=== PATIENT | female | born 1985 | race Caucasian/White ===

== ENCOUNTER 2020-06-02 08:54 | Inpatient (IN) ==
[2020-06-02] MEDS ORDERED: ONDANSETRON 4 MG/2 ML VIAL IV PRN ×2 (09:59→17:30)
[2020-06-02] MEDS ORDERED: OXYTOCIN/LR 20 UNIT/1,000 ML BAG IV PRN (09:59)
[2020-06-02] MEDS ORDERED: LACTATED RINGERS 1,000 ML IV SCH (10:00)
[2020-06-02 10:51] LABS: Basophils % 0.2 % (0.0-0.8); Eosinophils % 0.4 % (0.00-10.9); Hematocrit 30.8 VOL% (35.7-47.0); Hemoglobin 9.4 GM/DL (12.0-16.0); Immature Granulocytes % 0.7 %; Immature Granulocytes Absolute 0.04 #; Lymphocytes # 1.4 10*3/uL (1.4-4.0); Lymphocytes % 23.8 % (21.3-54.2); Mean Corpuscular HGB Conc 30.5 GM/DL (32-36); Mean Corpuscular Volume 76.6 FL (87-102); Monocytes % 5.5 % (1.7-12.7); Neutrophils % 69.4 % (38.7-73.9); Platelet Count 55 T/CUMM (130-400); Red Blood Count 4.02 MC/CUMM (3.8-5.5); Red Cell Distribution Width 14.6 % (9.3-17.3); White Blood Count 5.7 T/CUMM (4-12)
[2020-06-02 11:02] LABS: PT Patient Result 10.3 SECS (9.8-11.9); Partial Thromboplastin Time 31.1 SECS (23.9-33.8)
[2020-06-02 11:24] LABS: Bilirubin,Urine Negative (Negative); Blood, Urine Negative (Negative); Glucose,Urine (UA) Negative (Negative); Ketones,Urine Negative (Negative); Nitrite,Urine Negative (Negative); Protein,Urine Negative; RBC,Urine <1 /HPF (0-4); Squamous Epithelial Cell,Urine Occasional /HPF (0-10); Urine Appearance CLEAR (Clear); Urine Color Straw (Yellow); Urine Specific Gravity 1.006 (1.001-1.035); Urine Urobilinogen < 2.0 EU/DL (0.2-1.0); WBC,Urine <1 /HPF (0-6)
[2020-06-02 12:08] LABS: Alanine Aminotransferase 37 U/L (13-56); Albumin 2.1 G/DL (3.4-5.0); Alkaline Phosphatase 273 U/L (45-117); Aspartate Amino Transferase 61 U/L (0-37); Bilirubin,Total < 0.39 MG/DL (0.2-1.0); Blood Urea Nitrogen 11 MG/DL (7-18); Calcium 8.2 MG/DL (8.5-10.1); Estimated Glom Filtration Rate 142 ML/MIN; Glucose 66 MG/DL (74-106); Osmolality,Calculated 275.4 MOS/KG (273-304); Uric Acid 4.3 MG/DL (2.6-6.0)
[2020-06-02] MEDS: LORazepam 2 MG/1 ML VIAL IV PRN ×4 (12:36→23:07)
[2020-06-02] MEDS: MEPERIDINE 50 MG/1 ML VIAL IV PRN ×4 (12:43→23:10)
[2020-06-02 14:30] LABS: Band Neutrophils 5 % (0-10); Lymphocytes 15 % (20-55); Microcytosis Slight; Nucleated Red Blood Cells 2 (0-5); Platelet Estimate Decreased; Polychromasia Slight; Segmented Neutrophils 76 % (50-85); Total Cells Counted 100
[2020-06-02] MEDS ORDERED: OXYTOCIN/LR 30 UNIT/1,000 ML BAG IV ONE (14:43)
[2020-06-02] MEDS ORDERED: miSOPROStoL 200 MCG TABLET ONE (14:44)
[2020-06-02] MEDS ORDERED: METHYLERGONOVINE 0.2 MG/1 ML AMP ONE (14:45)
[2020-06-02] MEDS ORDERED: CARBOPROST TROMETHAMINE 250 MCG/ML AMP IM ONE (14:45)
[2020-06-02] MEDS ORDERED: BENZOCAINE 20%/MENTHOL 0.5% SPRAY 56 GM CAN TOP PRN (17:30)
[2020-06-02] MEDS ORDERED: OXYTOCIN/LR 20 UNIT/1,000 ML BAG IV ONE (17:30)
[2020-06-02] MEDS ORDERED: HYDROCORTISONE 2.5% RECTAL CREAM 30 GM TUBE TOP PRN (17:30)
[2020-06-02] MEDS ORDERED: RHO(D) IMMUNE GLOBULIN 300 MCG SYRINGE IM ONE (17:30)
[2020-06-02] MEDS ORDERED: MEASLES/MUMPS/RUBELLA VACCINE 0.5 ML VIAL SUBCUT ONE (17:30)
[2020-06-02] MEDS ORDERED: BISACODYL 10 MG SUPP RECTAL PRN (17:30)
[2020-06-02] MEDS ORDERED: LANOLIN 50% CREAM 0.3 OZ TUBE TOP PRN (17:30)
[2020-06-02] MEDS ORDERED: DIPH/TET/ACEL PERT BOOSTER VACCINE 0.5 ML VIAL IM ONE (17:30)
[2020-06-02] MEDS ORDERED: IBUPROFEN 800 MG TABLET PO PRN (17:30)
[2020-06-02] MEDS ORDERED: WITCH HAZEL PADS 100/JAR TOP PRN (17:30)
[2020-06-02] MEDS ORDERED: oxyCODONE/ACETAMINOPHEN 5-325 MG TABLET PO PRN ×2 (17:30)
[2020-06-02] MEDS: ACETAMINOPHEN 325 MG TABLET PO PRN (17:55)
[2020-06-02] MEDS ORDERED: DOCUSATE SODIUM 100 MG CAPSULE PO SCH (21:00)
[2020-06-03] MEDS: ACETAMINOPHEN 325 MG TABLET PO PRN ×2 (03:29→10:13)
[2020-06-03] MEDS: LORazepam 2 MG/1 ML VIAL IV PRN ×2 (03:30→06:22)
[2020-06-03] MEDS: MEPERIDINE 50 MG/1 ML VIAL IV PRN (06:18)
[2020-06-03 06:20] LABS: Eosinophils % 0.7 % (0.00-10.9); Hematocrit 26.2 VOL% (35.7-47.0); Hemoglobin 8.2 GM/DL (12.0-16.0); Immature Granulocytes % 1.1 %; Immature Granulocytes Absolute 0.07 #; Lymphocytes # 1.3 10*3/uL (1.4-4.0); Lymphocytes % 21.4 % (21.3-54.2); Mean Corpuscular HGB Conc 31.3 GM/DL (32-36); Mean Corpuscular Volume 77.3 FL (87-102); Monocytes % 5.9 % (1.7-12.7); Neutrophils % 70.9 % (38.7-73.9); Red Blood Count 3.39 MC/CUMM (3.8-5.5); Red Cell Distribution Width 14.9 % (9.3-17.3); White Blood Count 6.1 T/CUMM (4-12)
[2020-06-03 06:26] LABS: Platelet Count 63 T/CUMM (130-400)
[2020-06-03 06:54] LABS: Eosinophils 1 % (0-10); Lymphocytes 16 % (20-55); Segmented Neutrophils 79 % (50-85); Total Cells Counted 100
[2020-06-03 06:55] LABS: Hypochromasia 1+; Microcytosis 1+; Platelet Estimate Decreased
[2020-06-03] MEDS ORDERED: PANTOPRAZOLE 40 MG TABLET PO SCH (10:30)
[2020-06-03] MEDS ORDERED: CETIRIZINE 10 MG TABLET PO SCH (10:30)
[2020-06-03] MEDS ORDERED: CHOLECALCIFEROL 1,000 UNIT TABLET PO SCH (10:30)
[2020-06-03] MEDS ORDERED: ZINC SULFATE 220 MG CAPSULE PO SCH (10:30)
[2020-06-03 12:48] VITALS: BP 108/51
[2020-06-03] MEDS ORDERED: APIXABAN 5 MG TABLET PO SCH ×2 (14:00→21:00)
[2020-06-03] MEDS ORDERED: ASCORBIC ACID 500 MG TABLET PO SCH (21:00)
== END 2020-06-03 16:30 | disposition home or self-care (01) | DRG 805 ==
LOC: N.LDOUT 08:54 → N.LD 08:56
PROVIDERS: ADMIT Obstetrics & Gynecology; ATTEND Obstetrics & Gynecology

== ENCOUNTER 2021-08-11 14:45 | Inpatient (IN) ==
[2021-08-11] MEDS ORDERED: ONDANSETRON 4 MG/2 ML VIAL IV PRN (15:29)
[2021-08-11] MEDS ORDERED: MEPERIDINE 50 MG/1 ML VIAL IV PRN (15:29)
[2021-08-11] MEDS: LACTATED RINGERS 1,000 ML IV SCH (15:30)
[2021-08-11] MEDS ORDERED: OXYTOCIN/LR 20 UNIT/1,000 ML BAG IV SCH (15:30)
[2021-08-11 15:51] LABS: Basophils % 0.2 % (0.0-0.8); Eosinophils % 0.7 % (0.00-10.9); Hematocrit 27.2 VOL% (35.7-47.0); Hemoglobin 8.1 GM/DL (12.0-16.0); Immature Granulocytes % 0.4 %; Immature Granulocytes Absolute 0.02 #; Lymphocytes # 0.8 10*3/uL (1.4-4.0); Lymphocytes % 14.4 % (21.3-54.2); Mean Corpuscular HGB Conc 29.8 GM/DL (32-36); Mean Corpuscular Volume 73.5 FL (87-102); Mean Platelet Volume 11.8 FL (9.6-12.0); Monocytes % 7.5 % (1.7-12.7); Neutrophils % 76.8 % (38.7-73.9); Platelet Count 127 T/CUMM (130-400); Red Cell Distribution Width 18.5 % (9.3-17.3); White Blood Count 5.3 T/CUMM (4-12)
[2021-08-11 16:06] LABS: Albumin 2.3 G/DL (3.4-5.0); Bilirubin,Total 1.8 MG/DL (0.20-1.00); Calcium 8.4 MG/DL (8.5-10.1); Osmolality,Calculated 273.5 MOS/KG (273-304); Potassium 3.4 MMOL/L (3.5-5.1); Total Protein 6.3 G/DL (6.4-8.2); Uric Acid 4.3 MG/DL (2.6-6.0)
[2021-08-11] MEDS: BETAMETH SODIUM PHOS/ACETATE 30 MG/5 ML VIAL IM SCH (16:09)
[2021-08-11 17:07] LABS: Bilirubin,Urine Negative (Negative); Blood, Urine Negative (Negative); Glucose,Urine (UA) Negative (Negative); Ketones,Urine Negative (Negative); Mucus,Urine Occasional /LPF (Occasional); Nitrite,Urine Negative (Negative); Protein,Urine 30 MG/DL; RBC,Urine 3 /HPF (0-4); Squamous Epithelial Cell,Urine Occasional /HPF (0-10); Urine Appearance CLEAR (Clear); Urine Color Yellow (Yellow); Urine Specific Gravity 1.016 (1.001-1.035); Urine Urobilinogen < 2.0 EU/DL (<2.0)
[2021-08-11] MEDS: ACETAMINOPHEN 500 MG TABLET PO PRN (19:38)
[2021-08-12] MEDS ORDERED: BETAMETH SODIUM PHOS/ACETATE 30 MG/5 ML VIAL IM SCH (00:05)
[2021-08-12] MEDS: LACTATED RINGERS 1,000 ML IV SCH ×2 (00:53→12:27)
[2021-08-12] MEDS: ACETAMINOPHEN 500 MG TABLET PO PRN ×2 (00:55→20:46)
[2021-08-12] MEDS ORDERED: CALCIUM CARBONATE CHEW 500 MG TABLET PO PRN (01:29)
[2021-08-12] MEDS: BETAMETH SODIUM PHOS/ACETATE 30 MG/5 ML VIAL IM SCH (06:16)
[2021-08-12] MEDS ORDERED: CLINDAMYCIN INJ 900 MG/50 ML PREMIX IV SCH (09:00)
[2021-08-12] MEDS: atenoloL 25 MG TABLET PO SCH (10:25)
[2021-08-12] MEDS ORDERED: miSOPROStoL 200 MCG TABLET ONE (14:22)
[2021-08-12] MEDS ORDERED: SODIUM CHLORIDE 0.9% 0 ML IV ONE (14:22)
[2021-08-12] MEDS ORDERED: TRANEXAMIC ACID 1,000 MG/10 ML VIAL ONE (14:22)
[2021-08-12] MEDS ORDERED: OXYTOCIN/LR 20 UNIT/1,000 ML BAG IV ONE (14:22)
[2021-08-12] MEDS ORDERED: METHYLERGONOVINE 0.2 MG/1 ML AMP ONE (14:23)
[2021-08-12] MEDS ORDERED: LIDOCAINE 1% 50 ML VIAL ONE (14:23)
[2021-08-12] MEDS ORDERED: CARBOPROST TROMETHAMINE 250 MCG/ML AMP IM ONE (14:23)
[2021-08-12] MEDS ORDERED: MEPERIDINE 50 MG/1 ML VIAL IV ONE (15:57)
[2021-08-12 16:34] LABS: Bacteria,Urine Occasional /HPF (Few); Bilirubin,Urine Negative (Negative); Blood, Urine Moderate mg/dL (Negative); Calcium Oxalate Crystals,Urine Occasional /HPF (Few); Glucose,Urine (UA) Negative (Negative); Ketones,Urine 80 mg/dL (Negative); Mucus,Urine Occasional /LPF (Occasional); Nitrite,Urine Negative (Negative); Protein,Urine Negative; RBC,Urine 91 /HPF (0-4); Urine Appearance CLEAR (Clear); Urine Color Straw (Yellow); Urine Specific Gravity 1.008 (1.001-1.035); Urine Urobilinogen < 2.0 EU/DL (<2.0)
[2021-08-12 16:39] LABS: Cord Venous Blood HCO3 21.3 MMOL/L; Cord Venous Blood PCO2 47.2 MMHG; Cord Venous Blood PO2 18.2
[2021-08-12] MEDS ORDERED: IBUPROFEN 600 MG TABLET PO PRN (20:43)
[2021-08-12] MEDS: FERROUS SULFATE 325 MG TABLET PO SCH (22:20)
[2021-08-12] MEDS: IBUPROFEN 800 MG TABLET PO PRN (22:21)
[2021-08-13] MEDS: ACETAMINOPHEN/CODEINE 300-30 MG TABLET PO PRN ×3 (03:50→21:32)
[2021-08-13 06:47] LABS: Eosinophils % 0.3 % (0.00-10.9); Hematocrit 26.8 VOL% (35.7-47.0); Hemoglobin 7.9 GM/DL (12.0-16.0); Immature Granulocytes % 0.6 %; Immature Granulocytes Absolute 0.04 #; Lymphocytes # 0.8 10*3/uL (1.4-4.0); Mean Corpuscular HGB Conc 29.5 GM/DL (32-36); Mean Corpuscular Volume 74.2 FL (87-102); Monocytes % 8.4 % (1.7-12.7); Neutrophils % 78.7 % (38.7-73.9); Platelet Count 128 T/CUMM (130-400); Red Blood Count 3.61 MC/CUMM (3.8-5.5); Red Cell Distribution Width 18.6 % (9.3-17.3); White Blood Count 6.9 T/CUMM (4-12)
[2021-08-13 07:08] LABS: Hypochromia 1+; Microcytosis 1+
[2021-08-13 07:09] LABS: Platelet Estimate Adequate; Tear Drop Cells Slight
[2021-08-13] MEDS: atenoloL 25 MG TABLET PO SCH ×2 (07:37→08:22)
[2021-08-13] MEDS: FERROUS SULFATE 325 MG TABLET PO SCH ×3 (07:39→21:31)
[2021-08-13] MEDS: PANTOPRAZOLE 40 MG TABLET PO SCH ×2 (07:39→08:22)
[2021-08-13] MEDS: POTASSIUM CHLORIDE 20 MEQ TABLET PO SCH ×2 (07:39→08:22)
[2021-08-13] MEDS ORDERED: SODIUM CHLORIDE 0.9% 1,000 ML IV PRN (09:31)
[2021-08-13] MEDS ORDERED: diphenhydrAMINE CAP 25 MG CAPSULE PO ONE (09:51)
[2021-08-13] MEDS ORDERED: ACETAMINOPHEN 325 MG TABLET PO ONE (09:52)
[2021-08-13] MEDS ORDERED: SERTRALINE 100 MG TABLET PO SCH (21:00)
[2021-08-13] MEDS ORDERED: BENZOCAINE 20%/MENTHOL 0.5% SPRAY 56 GM CAN TOP PRN (21:03)
[2021-08-13] MEDS ORDERED: WITCH HAZEL PADS 100/JAR TOP PRN (21:04)
[2021-08-13] MEDS: DOCUSATE SODIUM 100 MG CAPSULE PO PRN (21:31)
[2021-08-13] MEDS: IBUPROFEN 800 MG TABLET PO PRN (23:09)
[2021-08-14] MEDS: ACETAMINOPHEN/CODEINE 300-30 MG TABLET PO PRN ×2 (03:43→09:56)
[2021-08-14] MEDS: IBUPROFEN 800 MG TABLET PO PRN (06:06)
[2021-08-14 06:41] LABS: Basophils % 0.1 % (0.0-0.8); Eosinophils # 0.1 10*3/uL (0.0-0.87); Eosinophils % 0.7 % (0.00-10.9); Hematocrit 28.6 VOL% (35.7-47.0); Hemoglobin 8.3 GM/DL (12.0-16.0); Immature Granulocytes % 0.7 %; Immature Granulocytes Absolute 0.05 #; Lymphocytes # 1.4 10*3/uL (1.4-4.0); Lymphocytes % 20.6 % (21.3-54.2); Mean Corpuscular Volume 76.3 FL (87-102); Mean Platelet Volume 12.8 FL (9.6-12.0); Monocytes % 10.8 % (1.7-12.7); Neutrophils % 67.1 % (38.7-73.9); Platelet Count 154 T/CUMM (130-400); Red Blood Count 3.75 MC/CUMM (3.8-5.5); Red Cell Distribution Width 18.9 % (9.3-17.3); White Blood Count 6.9 T/CUMM (4-12)
[2021-08-14 07:12] LABS: Hypochromia 1+; Lymphocytes 21 % (20-55); Microcytosis 1+; Segmented Neutrophils 72 % (50-85); Total Cells Counted 100
[2021-08-14 07:13] LABS: Atypical Lymphocytes Few; Platelet Estimate Adequate; Polychromasia Slight
[2021-08-14 07:15] LABS: Alanine Aminotransferase 14 U/L (13-56); Albumin 2.3 G/DL (3.4-5.0); Alkaline Phosphatase 131 U/L (45-117); Aspartate Amino Transferase 18 U/L (0-37); Bilirubin,Total < 0.39 MG/DL (0.20-1.00); Blood Urea Nitrogen 12 MG/DL (7-18); Calcium 8.7 MG/DL (8.5-10.1); Carbon Dioxide 27 MMOL/L (21-32); Estimated Glom Filtration Rate 134 ML/MIN; Glucose 69 MG/DL (74-106); Osmolality,Calculated 272.7 MOS/KG (273-304); Potassium 4.1 MMOL/L (3.5-5.1); Sodium 138 MMOL/L (136-145); Total Protein 6.1 G/DL (6.4-8.2)
[2021-08-14] MEDS: atenoloL 25 MG TABLET PO SCH (07:58)
[2021-08-14] MEDS: PANTOPRAZOLE 40 MG TABLET PO SCH ×2 (07:58)
[2021-08-14] MEDS: DOCUSATE SODIUM 100 MG CAPSULE PO PRN (07:58)
[2021-08-14] MEDS: FERROUS SULFATE 325 MG TABLET PO SCH ×2 (07:58)
[2021-08-14] MEDS: POTASSIUM CHLORIDE 20 MEQ TABLET PO SCH (07:58)
[2021-08-14] MEDS ORDERED: SODIUM CHLORIDE 0.9% 1,000 ML IV PRN (08:57)
[2021-08-14] MEDS ORDERED: diphenhydrAMINE CAP 25 MG CAPSULE ONE (09:53)
[2021-08-14 15:04] LABS: Hemoglobin 8.3 GM/DL (12.0-16.0)
[2021-08-14 15:49] VITALS: BP 105/44
== END 2021-08-14 16:55 | disposition home or self-care (01) | DRG 806 ==
LOC: N.LDOUT 14:45 → N.LD 14:47 → N.OB 08-12 20:05
PROVIDERS: ADMIT Obstetrics & Gynecology; ATTEND Obstetrics & Gynecology

== ENCOUNTER 2022-03-26 19:18 | Inpatient (IN) ==
[2022-03-26 21:50] LABS: Basophils % 0.3 % (0.0-0.8); Eosinophils # 0.1 10*3/uL (0.0-0.87); Eosinophils % 2.9 % (0.00-10.9); Hemoglobin 9.7 GM/DL (12.0-16.0); Immature Granulocytes % 0.3 %; Immature Granulocytes Absolute 0.01 #; Lymphocytes # 0.6 10*3/uL (1.4-4.0); Lymphocytes % 15.7 % (21.3-54.2); Mean Corpuscular HGB Conc 31.3 GM/DL (32-36); Mean Corpuscular Volume 86.6 FL (87-102); Mean Platelet Volume 11.7 FL (9.6-12.0); Monocytes # 0.3 10*3/uL (0.11-0.8); Neutrophils % 72.8 % (38.7-73.9); Platelet Count 168 T/CUMM (130-400); Red Blood Count 3.58 MC/CUMM (3.8-5.5); Red Cell Distribution Width 13.6 % (9.3-17.3); White Blood Count 3.8 T/CUMM (4-12)
[2022-03-26 22:11] LABS: Albumin 3.3 G/DL (3.4-5.0); Bilirubin,Total 0.6 MG/DL (0.20-1.00); Calcium 8.4 MG/DL (8.5-10.1); Osmolality,Calculated 284.8 MOS/KG (273-304); Potassium 3.1 MMOL/L (3.5-5.1); Total Protein 6.8 G/DL (6.4-8.2)
[2022-03-26 22:51] LABS: Sedimentation Rate-Westergren 69 MM/HR (0-20)
[2022-03-26] MEDS ORDERED: MAGNESIUM HYDROXIDE SUSP 30 ML UDCUP PO PRN (23:13)
[2022-03-26] MEDS ORDERED: CLINDAMYCIN INJ 900 MG/50 ML PREMIX IV ONE (23:13)
[2022-03-26] MEDS ORDERED: HYDROmorphone 1 MG/1 ML SYRINGE IV PRN (23:13)
[2022-03-26] MEDS ORDERED: ONDANSETRON 4 MG/2 ML VIAL IV PRN (23:13)
[2022-03-26 23:25] LABS: PT Patient Result 11.3 SECS (10.1-12.1)
[2022-03-26] MEDS ORDERED: ALUM/MAG/SIMETH/LIDO VISC 1:1 30 ML BOTTLE PO ONE ×2 (23:45→23:46)
[2022-03-26] MEDS ORDERED: PANTOPRAZOLE 40 MG VIAL IV ONE ×2 (23:45→23:46)
[2022-03-27] MEDS ORDERED: KETOROLAC 15 MG/1 ML VIAL IV PRN (00:36)
[2022-03-27] MEDS: BACLOFEN 10 MG TABLET PO SCH ×3 (01:02→14:11)
[2022-03-27] MEDS: POTASSIUM CHLORIDE RIDER 10 MEQ/100 ML PREMIX IV PRN ×4 (01:08→04:30)
[2022-03-27] MEDS ORDERED: MEPERIDINE 25 MG/1 ML VIAL IV PRN (07:18)
[2022-03-27] MEDS ORDERED: LIDOCAINE 2% 5 ML VIAL ONE ×2 (07:25→07:32)
[2022-03-27] MEDS ORDERED: ROCURONIUM 50 MG/5 ML VIAL IV ONE (07:25)
[2022-03-27] MEDS ORDERED: SEVOFLURANE 1 UNIT/15 MINUTE INH ONE (07:25)
[2022-03-27] MEDS ORDERED: propofoL 200 MG/20 ML VIAL IV ONE (07:25)
[2022-03-27] MEDS ORDERED: fentaNYL 100 MCG/2 ML VIAL ONE (07:27)
[2022-03-27] MEDS ORDERED: MIDAZOLAM 2 MG/2 ML VIAL ONE ×3 (07:27→07:46)
[2022-03-27] MEDS ORDERED: FAMOTIDINE 20 MG/2 ML VIAL IV ONE (07:32)
[2022-03-27] MEDS ORDERED: ROPIVACAINE 0.5% 30 ML VIAL ONE (07:32)
[2022-03-27] MEDS ORDERED: DEXAMETHASONE 4 MG/1 ML VIAL ONE (07:32)
[2022-03-27] MEDS ORDERED: KETAMINE 500 MG/10 ML VIAL ONE (08:26)
[2022-03-27] MEDS ORDERED: PANTOPRAZOLE 40 MG TABLET PO SCH (09:00)
[2022-03-27] MEDS ORDERED: atenoloL 25 MG TABLET PO SCH (09:00)
[2022-03-27] MEDS ORDERED: CETIRIZINE 10 MG TABLET PO SCH (09:00)
[2022-03-27] MEDS ORDERED: OXYBUTYNIN XL 10 MG TABLET PO SCH (09:00)
[2022-03-27] MEDS ORDERED: BACITRACIN OINT 0.9 GM PACK TOP ONE (09:03)
[2022-03-27] MEDS ORDERED: SUGAMMADEX 200 MG/2 ML VIAL IV ONE (09:30)
[2022-03-27] MEDS ORDERED: LACTATED RINGERS 1,000 ML IV ONE (09:30)
[2022-03-27] MEDS ORDERED: diphenhydrAMINE CAP 25 MG CAPSULE PO PRN (09:38)
[2022-03-27] MEDS ORDERED: POTASSIUM CHLORIDE INJ 40 MEQ in LACTATED RINGERS 1,000 ML IV SCH (11:00)
[2022-03-27] MEDS: SODIUM CHLORIDE 0.9% 1,000 ML IV SCH ×2 (11:49)
[2022-03-27] MEDS: DIAZEPAM 5 MG TABLET PO SCH ×2 (11:49→12:05)
[2022-03-27 15:25] VITALS: BP 117/60
[2022-03-27] MEDS ORDERED: DOCUSATE SODIUM 100 MG CAPSULE PO SCH (21:00)
[2022-03-27] MEDS ORDERED: SERTRALINE 100 MG TABLET PO SCH (21:00)
[2022-03-28] MEDS ORDERED: FONDAPARINUX 2.5 MG/0.5 ML SYRINGE SUBCUT SCH (04:00)
[2022-03-28] MEDS ORDERED: ACETAMINOPHEN 325 MG TABLET PO PRN (09:38)
== END 2022-03-27 16:26 | disposition home or self-care (01) | DRG 481 ==
LOC: N.ED 19:18 → N.EDINP 20:59 → N.3E 21:32
PROVIDERS: ADMIT Orthopaedic Surgery; ATTEND Orthopaedic Surgery